=== PATIENT | female | born 1975 | race Caucasian/White ===

== ENCOUNTER → 2017-02-08 | Outpatient (CLI) | payer OTHER ==
--- NOTE | 2017-02-08 09:55 | CR ---
EXAMINATION: Two-view chest (PA and Lateral views). HISTORY: Cough. FINDINGS: The trachea is midline. The cardiomediastinal silhouette is within normal limits. No pulmonary infil trates, effusions or pneumothorax. Osseous structures appear unremarkable. IMPRESSION: No acute cardiopulmonary process.
== END ==
LOC: MW.CHFP 09:13
PROVIDERS: ATTEND Physician Assistant
DX: R05 Cough (principal); R50.9 Fever, unspecified
CPT/HCPCS: 36415; 71020; 71020-26; 85025

== ENCOUNTER 2017-07-31 04:10 | Emergency (ER) | payer OTHER ==
[2017-07-31] MEDS ORDERED: Ketorolac 30 MG/ML SDV IVPUSH ONE (04:19)
[2017-07-31] MEDS ORDERED: Ondansetron 4 MG/2 ML SDV IVPUSH ONE (04:19)
[2017-07-31] MEDS ORDERED: Sodium Chloride 0.9% 1,000 ML IV SCH (04:30)
--- NOTE | 2017-07-31 04:33 | EDM.PDOC ---
ED HPI GENERAL MEDICAL PROBLEM - General Chief Complaint: Abdominal Pain Stated Complaint: STOMACH PAIN Time Seen by Provider: 07/31/17 04:16 - History of Present Illness INITIAL COMMENTS - FREE TEXT/NARRATIVE: HISTORY AND PHYSICAL: History of present illness: Patient is a 42-year-old white female who presents with a concern of left lower quadrant abdominal pain that came on acutely approximately 3 hours prior to arrival patient has history of ovarian cyst this was right-sided she has had a partial hysterectomy she denies fever chills nausea vomiting patient denies trauma denies urinary symptoms vaginal discharge or irregular bleeding Review of systems: As per history of present illness and below otherwise all systems reviewed and negative. Past medical history: As per history of present illness and as reviewed below otherwise noncontributory. Surgical history: As per history of present illness and as reviewed below otherwise noncontributory. Social history: No reported history of drug or alcohol abuse. Family history: As per history of present illness and as reviewed below otherwise noncontributory. Physical exam: HEENT: Atraumatic, normocephalic, pupils reactive, negative for conjunctival pallor or scleral icterus, mucous membranes moist, throat clear, neck supple, nontender, trachea midline. Lungs: Clear to auscultation, breath sounds equal bilaterally, chest nontender. Heart: S1S2, regular, negative for clicks, rubs, or JVD. Abdomen: Soft, nondistended, patient's localized tenderness in the left lower quadrant no rebound equivocal guarding. Negative for masses or hepatosplenomegaly. Negative for costovertebral tenderness. Pelvis: Stable nontender. Genitourinary: Deferred. Rectal: Deferred. Extremities: Atraumatic, negative for cords or calf pain. Neurovascular unremarkable. Neuro: Awake, alert, oriented. Cranial nerves II through XII unremarkable. Cerebellum unremarkable. Motor and sensory unremarkable throughout. Exam nonfocal. Diagnostics: CBC CMP UA CT abdomen and pelvis Therapeutics: Normal saline 1 L bolus and Toradol 30 mg IV Zofran 4 mg IV Impression: #1 acute left lower quadrant abdominal pain Definitive disposition and diagnosis as appropriate pending reevaluation and review of above. Left Lower Abdomen Pain Score (Numeric/FACES): 5 - Related Data Allergies Allergy/AdvReac Type Severity Reaction Status Date / Time No Known Allergies Allergy Verified 07/31/17 04:13 Home Meds: Home Meds . [No Known Home Meds] 07/31/17 [History] Past Medical History HEENT History: Reports: None Cardiovascular History: Reports: None Respiratory History: Reports: None Gastrointestinal History: Reports: None Genitourinary History: Reports: None CUT OFF TENDER GLASS History: Reports: None Musculoskeletal History: Reports: None Neurological History: Reports: None Psychiatric History: Reports: None Endocrine/Metabolic History: Reports: None Hematologic History: Reports: None Immunologic History: Reports: None Oncologic (Cancer) History: Reports: None Dermatologic History: Reports: None - Infectious Disease History Infectious Disease History: Reports: Chicken Pox - Past Surgical History Head Surgeries/Procedures: Reports: None HEENT Surgical History: Reports: Adenoidectomy Cardiovascular Surgical History: Reports: None Respiratory Surgical History: Reports: None GI Surgical History: Reports: Appendectomy, Cholecystectomy Female Surgical History: Reports: Hysterectomy Endocrine Surgical History: Reports: None Neurological Surgical History: Reports: None Musculoskeletal Surgical History: Reports: None Oncologic Surgical History: Reports: None Dermatological Surgical History: Reports: None Social & Family History - Family History Family Medical History: Noncontributory - Tobacco Use Smoking Status *Q: Current Every Day Smoker Years of Tobacco use: 20 Packs/Tins Daily: 0.5 - Caffeine Use Caffeine Use: Reports: Coffee - Alcohol Use Days Per Week of Alcohol Use: 1 Number of Drinks Per Day: 2 Total Drinks Per Week: 2 - Recreational Drug Use Recreational Drug Use: No Drug Use in Last 12 Months: No ED ROS GENERAL - Review of Systems Review Of Systems: ROS reveals no pertinent complaints other than HPI. ED EXAM, GENERAL - Physical Exam Exam: See Below (See dictation) Course - Vital Signs Last Recorded V/S: Last Vital Signs Temp 36.6 C 07/31/17 04:14 Pulse 75 07/31/17 05:00 Resp 18 07/31/17 05:00 BP 123/58 L 07/31/17 05:00 Pulse Ox 95 07/31/17 05:00 - Orders/Labs/Meds Orders: Active Orders 24 hr Category Date Time Status Abdomen Pelvis wo Cont [CT] Stat Exams 07/31/17 04:19 Taken Sodium Chloride 0.9% [Normal Saline] 1,000 ml Med 07/31/17 04:30 Active IV ASDIRECTED Medication Orders Sodium Chloride (Normal Saline) 1,000 mls @ 999 mls/hr IV ASDIRECTED NIRMAL Last Admin: 07/31/17 04:30 Dose: 999 mls/hr Labs: Laboratory Tests 07/31/17 07/31/17 07/31/17 Range/Units 04:28 04:28 04:52 WBC 9.48 (4.0-11.0) K/uL RBC 4.94 (4.30-5.90) M/uL Hgb 13.6 (12.0-16.0) g/dL Hct 40.3 (36.0-46.0) % MCV 81.6 (80.0-98.0) fL MCH 27.5 (27.0-32.0) pg MCHC 33.7 (31.0-37.0) g/dL RDW Std Deviation 40.9 (28.0-62.0) fl RDW Coeff of Christine 14 (11.0-15.0) % Plt Count 181 (150-400) K/uL MPV 10.60 (7.40-12.00) fL Neut % (Auto) 71.5 (48.0-80.0) % Lymph % (Auto) 17.6 (16.0-40.0) % [place] % (Auto) 7.4 (0.0-15.0) % Eos % (Auto) 3.0 (0.0-7.0) % Baso % (Auto) 0.5 (0.0-1.5) % Neut # (Auto) 6.8 H (1.4-5.7) K/uL Lymph # (Auto) 1.7 (0.6-2.4) K/uL [place] # (Auto) 0.7 (0.0-0.8) K/uL Eos # (Auto) 0.3 (0.0-0.7) K/uL Baso # (Auto) 0.1 (0.0-0.1) K/uL Nucleated RBC % 0.0 /100WBC Nucleated RBCs # 0 K/uL Sodium 143 (136-146) mmol/L Potassium 3.7 (3.5-5.1) mmol/L Chloride 111 H (98-110) mmol/L Carbon Dioxide 23 (21-31) mmol/L BUN 11 (6.0-23.0) mg/dL Creatinine 0.8 (0.6-1.5) mg/dL Est Cr Clr Drug Dosing 93.72 mL/min Estimated GFR (MDRD) > 60.0 ml/min Glucose 102 (60-110) mg/dL Calcium 9.0 (8.8-10.8) mg/dL Total Bilirubin 0.7 (0.1-1.5) mg/dL AST 16 (5-40) IU/L ALT 15 (8-54) IU/L Alkaline Phosphatase 79 (40-150) Total Protein 6.9 (6.0-8.0) g/dL Albumin 4.0 (3.5-5.0) g/dL Globulin 2.9 (2.0-3.5) g/dL Albumin/Globulin Ratio 1.4 (1.3-2.8) Urine Color YELLOW Urine Appearance SLT CLOUDY Urine pH 5.5 (5.0-8.0) Ur Specific [place] >= 1.030 (1.001-1.035) Urine Protein TRACE (NEGATIVE) mg/dL Urine Glucose (UA) NEGATIVE (NEGATIVE) mg/dL Urine Ketones NEGATIVE (NEGATIVE) mg/dL Urine Occult Blood LARGE H (NEGATIVE) Urine Nitrite NEGATIVE (NEGATIVE) Urine Bilirubin SMALL H (NEGATIVE) Urine Ictotest NEGATIVE Urine Urobilinogen 0.2 (<2.0) EU/dL Ur Leukocyte Esterase NEGATIVE (NEGATIVE) Urine RBC 50-75 H (0-2/HPF) Urine WBC 1-2 (0-5/HPF) Ur Epithelial Cells FEW (NONE-FEW) Urine Bacteria FEW (NEGATIVE) Urine Mucus LIGHT (NONE-MOD) Meds: Medications Generic Name Dose Route Start Last Admin Trade Name Freamaris PRN Reason Stop Dose Admin Sodium Chloride 1,000 mls @ 999 mls/hr 07/31/17 04:30 07/31/17 04:30 Normal Saline IV 999 mls/hr ASDIRECTED NIRMAL Administration Discontinued Medications Generic Name Dose Route Start Last Admin Trade Name Barreraq PRN Reason Stop Dose Admin Ketorolac Tromethamine 30 mg 07/31/17 04:19 07/31/17 04:31 Toradol IVPUSH 07/31/17 04:20 30 mg ONETIME ONE Administration Ondansetron HCl 4 mg 07/31/17 04:19 07/31/17 04:31 Zofran IVPUSH 07/31/17 04:20 4 mg ONETIME ONE Administration Tamsulosin HCl 0.4 mg 07/31/17 05:29 07/31/17 05:33 Flomax PO 07/31/17 05:30 0.4 mg ONETIME ONE Administration Departure - Departure Time of Disposition: 05:39 Disposition: Home, Self-Care 01 Condition: Good Clinical Impression: Ureterolithiasis - Discharge Information Referrals: PCP,None [Primary Care Provider] - Forms: ED Department Discharge Additional Instructions: The following information is given to patients seen in the emergency department who are being discharged to home. This information is to outline your options for follow-up care. We provide all patients seen in our emergency department with a follow-up referral. The need for follow-up, as well as the timing and circumstances, are variable depending upon the specifics of your emergency department visit. If you don't have a primary care physician on staff, we will provide you with a referral. We always advise you to contact your personal physician following an emergency department visit to inform them of the circumstance of the visit and for follow-up with them and/or the need for any referrals to a consulting specialist. The emergency department will also refer you to a specialist when appropriate. This referral assures that you have the opportunity for followup care with a specialist. All of these measure are taken in an effort to provide you with optimal care, which includes your followup. Under all circumstances we always encourage you to contact your private physician who remains a resource for coordinating your care. When calling for followup care, please make the office aware that this follow-up is from your recent emergency room visit. If for any reason you are refused follow-up, please contact the [facility] emergency department at and asked to speak to the emergency department charge nurse. [facility] Specialty Care - Urology [address] [place] [id number] Hydrocodone Zofran and Flomax as prescribed push fluids follow-up urology as discussed return as needed as discussed - My Orders Last 24 Hours: My Active Orders 07/31/17 04:19 Abdomen Pelvis wo Cont [CT] Stat 07/31/17 04:30 Sodium Chloride 0.9% [Normal Saline] 1,000 ml IV ASDIRECTED - Assessment/Plan Last 24 Hours: My Active Orders 07/31/17 04:19 Abdomen Pelvis wo Cont [CT] Stat 07/31/17 04:30 Sodium Chloride 0.9% [Normal Saline] 1,000 ml IV ASDIRECTED
[2017-07-31 05:00] LABS: CHLORIDE,CL 111 mmol/L (98-110); SODIUM,NA 143 mmol/L (136-146)
[2017-07-31] MEDS ORDERED: Tamsulosin 0.4 MG Cap.ER PO ONE (05:29)
[2017-07-31 05:58] VITALS: BP 132/74
--- NOTE | 2017-07-31 10:29 | CT ---
EXAM DATE: 07/31/17 PATIENT'S AGE: 42 Patient: ROXANNA CHO Facility: [place], [place] Site . Site : [id number] Study: CT Abdomen/Pelvis [id number]/[id number] 4:57:58 AM Ordering Physician: Hiro Robbins Final Report: INDICATION: Left flank pain. TECHNIQUE: CT abdomen and pelvis without contrast. COMPARISON: None. FINDINGS: Lower chest: Unremarkable. Liver: Unremarkable. Spleen: Unremarkable. Pancreas: Unremarkable. Gallbladder and bile ducts: Cholecystectomy. Kidneys: 3 mm stone in the proximal left ureter causes mild hydroureteronephrosis. No additional evidence of urolithiasis. Adrenal glands: Unremarkable. GI tract: Unremarkable. Appendix is normal. No free air or free fluid. Vascular structures: Unremarkable. Lymph nodes: Unremarkable. Pelvic Organs: Lobular low-attenuation lesion in the right adnexal region is incompletely characterized. For example, this measures approximately 4.7 x 3.8 cm on axial image 131. Bones: No acute abnormality. IMPRESSION: 3 mm stone in the proximal left ureter causing mild hydroureteronephrosis. Low-attenuation lesion in the right adnexal region. Followup nonemergent pelvic ultrasound recommended for further evaluation. Dictated by Faustino Lewis MD @ 07/31/2017 5:07:22 AM Dictated by: Faustino Lewis MD @ 07/31/2017 05:07:49 (Electronic Signature) Report Signed by Proxy. MEDISYS HEALTH NETWORKRicardo
== END 2017-07-31 05:55 | disposition home or self-care (01) ==
LOC: MW.ED 04:10
DX: N13.2 Hydronephrosis with renal and ureteral calculous obstruction (principal); F17.210 Nicotine dependence, cigarettes, uncomplicated; Z90.49 Acquired absence of other specified parts of digestive tract; Z90.710 Acquired absence of both cervix and uterus
CPT/HCPCS: 74176; 80053; 81001; 85025; 96361; 96374; 96375; 99284; A9270; J1885; J2405; J7040; 99283

== ENCOUNTER 2017-10-31 16:46 | Emergency (ER) | payer OTHER ==
[2017-10-31 17:28] VITALS: BP 138/91
[2017-10-31] MEDS ORDERED: Morphine 4 MG/ML Syringe IVPUSH ONE (17:56)
[2017-10-31] MEDS ORDERED: Ondansetron 4 MG/2 ML SDV IVPUSH ONE (17:56)
[2017-10-31] MEDS ORDERED: Sodium Chloride 0.9% 1,000 ML IV ONE (17:57)
[2017-10-31] MEDS ORDERED: Ketorolac 30 MG/ML SDV IVPUSH ONE (18:01)
--- NOTE | 2017-10-31 18:09 | EDM.PDOC ---
ED HPI GENERAL MEDICAL PROBLEM - General Chief Complaint: Abdominal Pain Stated Complaint: abdominal pain Time Seen by Provider: 10/31/17 17:50 Source of Information: Reports: Patient History Limitations: Reports: No Limitations - History of Present Illness INITIAL COMMENTS - FREE TEXT/NARRATIVE: HISTORY AND PHYSICAL: History of present illness: Patient is a 42-year-old female who presents to the emergency room with complaints of left flank pain that radiates into her left groin. Last week she was seen at [facility] for a UTI and was placed on Macrobid. Since that time has progressively worse pain to her left flank and today it now radiates into her groin. She does have a history of a kidney stone which she saw Dr. Way for in the past. This is fairly recent, within the last few months, and believes that this "is still there". She states that this pain is identical to previous kidney stones. Patient is up pacing in the room, she is unable to get comfortable. Denies any chance of , has had a hysterectomy. Review of systems: As per history of present illness and below otherwise all systems reviewed and negative. Past medical history: As per history of present illness and as reviewed below otherwise noncontributory. Surgical history: As per history of present illness and as reviewed below otherwise noncontributory. Social history: No reported history of drug or alcohol abuse. Family history: As per history of present illness and as reviewed below otherwise noncontributory. Physical exam: Gen.: Well-developed and well-nourished 42-year-old female. Appears nontoxic and in no acute distress. Alert and oriented. HEENT: Atraumatic, normocephalic, pupils reactive, negative for conjunctival pallor or scleral icterus, mucous membranes moist, throat clear, neck supple, nontender, trachea midline. Lungs: Clear to auscultation, breath sounds equal bilaterally, chest nontender. Heart: S1S2, regular, negative for clicks, rubs, or JVD. Abdomen: Soft, nondistended, nontender. Negative for masses or hepatosplenomegaly. Left costovertebral tenderness. Pelvis: Stable nontender. Genitourinary: Deferred. Rectal: Deferred. Extremities: Atraumatic, negative for cords or calf pain. Neurovascular unremarkable. Neuro: Awake, alert, oriented. Cranial nerves II through XII unremarkable. Cerebellum unremarkable. Motor and sensory unremarkable throughout. Exam nonfocal. CT scan shows a partially obstructing distal left ureteral colliculus at the UVJ , 2.2 mm in greatest width and roughly 4.4 mm in length. I did contact Dr. Way, he states that this should pass on its own. Instructed me to give her Flomax, pain medication and a strainer. He states that if she has continued problems he will see her in about 3 weeks. I did relay this information to the patient and she voices understanding and is agreeable to plan of care. Diagnostics: CBC, CMP, amylase, lipase, UA, CT abdomen and pelvis IV fluid, Zofran, morphine Impression: Renal calculus, left Plan: 1. Please take your pain medication as prescribed. This is a narcotics so do not take while driving or needing to be functioning at work. An antinausea medication, Zofran, has been prescribed as well. 2. Please increase your fluid intake and strain your urine. 3. Dr. Joshi is aware of her case and states he'll be happy to see you if needed. Follow-up with your primary care provider in the next 1-2 days. Return to the ED as needed and as discussed. Definitive disposition and diagnosis as appropriate pending reevaluation and review of above. Duration: Day(s): Location: Reports: Abdomen Left Flank Pain Score (Numeric/FACES): 8 - Related Data Allergies Allergy/AdvReac Type Severity Reaction Status Date / Time No Known Allergies Allergy Verified 10/31/17 17:28 Home Meds: Home Meds Nitrofurantoin [place]/Macrocryst [Macrobid] 100 mg PO BID 10/31/17 [History] Past Medical History HEENT History: Reports: None Cardiovascular History: Reports: None Respiratory History: Reports: None Gastrointestinal History: Reports: None Genitourinary History: Reports: None [employer] History: Reports: None Musculoskeletal History: Reports: None Neurological History: Reports: None Psychiatric History: Reports: None Endocrine/Metabolic History: Reports: None Hematologic History: Reports: None Immunologic History: Reports: None Oncologic (Cancer) History: Reports: None Dermatologic History: Reports: None - Infectious Disease History Infectious Disease History: Reports: Chicken Pox - Past Surgical History Head Surgeries/Procedures: Reports: None HEENT Surgical History: Reports: Adenoidectomy Cardiovascular Surgical History: Reports: None Respiratory Surgical History: Reports: None GI Surgical History: Reports: Appendectomy, Cholecystectomy Female Surgical History: Reports: Hysterectomy Endocrine Surgical History: Reports: None Neurological Surgical History: Reports: None Musculoskeletal Surgical History: Reports: None Oncologic Surgical History: Reports: None Dermatological Surgical History: Reports: None Social & Family History - Family History Family Medical History: Noncontributory - Tobacco Use Smoking Status *Q: Current Every Day Smoker Years of Tobacco use: 20 Packs/Tins Daily: 0.5 - Caffeine Use Caffeine Use: Reports: Coffee - Alcohol Use Days Per Week of Alcohol Use: 2 Number of Drinks Per Day: 6 Total Drinks Per Week: 12 - Recreational Drug Use Recreational Drug Use: No Drug Use in Last 12 Months: No ED ROS GENERAL - Review of Systems Review Of Systems: ROS reveals no pertinent complaints other than HPI. ED EXAM, RENAL/ - Physical Exam Exam: See Below (See dictation) Course - Vital Signs Last Recorded V/S: Last Vital Signs Temp 98 F 10/31/17 17:25 Pulse 86 10/31/17 17:25 Resp 22 H 10/31/17 17:25 BP 138/91 H 10/31/17 17:25 Pulse Ox 98 10/31/17 17:25 - Orders/Labs/Meds Orders: Active Orders 24 hr Category Date Time Status Abdomen Pelvis wo Cont [CT] Stat Exams 10/31/17 17:56 Taken HYDROmorphone [Dilaudid] Med 10/31/17 19:27 Once 1 mg IVPUSH ONETIME ONE Labs: Laboratory Tests 10/31/17 10/31/17 10/31/17 Range/Units 17:30 17:30 18:50 WBC 13.97 H (4.0-11.0) K/uL RBC 4.86 (4.30-5.90) M/uL Hgb 13.3 (12.0-16.0) g/dL Hct 40.2 (36.0-46.0) % MCV 82.7 (80.0-98.0) fL MCH 27.4 (27.0-32.0) pg MCHC 33.1 (31.0-37.0) g/dL RDW Std Deviation 42.1 (28.0-62.0) fl RDW Coeff of Christine 14 (11.0-15.0) % Plt Count 164 (150-400) K/uL MPV 11.20 (7.40-12.00) fL Neut % (Auto) 88.1 H (48.0-80.0) % Lymph % (Auto) 7.5 L (16.0-40.0) % [place] % (Auto) 3.2 (0.0-15.0) % Eos % (Auto) 0.9 (0.0-7.0) % Baso % (Auto) 0.3 (0.0-1.5) % Neut # (Auto) 12.3 H (1.4-5.7) K/uL Lymph # (Auto) 1.1 (0.6-2.4) K/uL [place] # (Auto) 0.5 (0.0-0.8) K/uL Eos # (Auto) 0.1 (0.0-0.7) K/uL Baso # (Auto) 0.0 (0.0-0.1) K/uL Nucleated RBC % 0.0 /100WBC Nucleated RBCs # 0 K/uL Sodium 144 (136-146) mmol/L Potassium 3.8 (3.5-5.1) mmol/L Chloride 109 (98-110) mmol/L Carbon Dioxide 23 (21-31) mmol/L BUN 11 (6.0-23.0) mg/dL Creatinine 0.9 (0.6-1.5) mg/dL Est Cr Clr Drug Dosing 82.98 mL/min Estimated GFR (MDRD) > 60.0 ml/min Glucose 100 (60-110) mg/dL Calcium 9.9 (8.8-10.8) mg/dL Total Bilirubin 0.4 (0.1-1.5) mg/dL AST 15 (5-40) IU/L ALT 14 (8-54) IU/L Alkaline Phosphatase 82 (40-150) Total Protein 7.7 (6.0-8.0) g/dL Albumin 4.3 (3.5-5.0) g/dL Globulin 3.4 (2.0-3.5) g/dL Albumin/Globulin Ratio 1.3 (1.3-2.8) Amylase 45 (10-90) U/L Lipase 21 (7-80) U/L Urine Color YELLOW Urine Appearance CLEAR Urine pH 5.5 (5.0-8.0) Ur Specific [place] >= 1.030 (1.001-1.035) Urine Protein NEGATIVE (NEGATIVE) mg/dL Urine Glucose (UA) NEGATIVE (NEGATIVE) mg/dL Urine Ketones TRACE H (NEGATIVE) mg/dL Urine Occult Blood TRACE-INTACT (NEGATIVE) Urine Nitrite NEGATIVE (NEGATIVE) Urine Bilirubin NEGATIVE (NEGATIVE) Urine Urobilinogen 0.2 (<2.0) EU/dL Ur Leukocyte Esterase NEGATIVE (NEGATIVE) Urine RBC 1-2 (0-2/HPF) Urine WBC 1-3 (0-5/HPF) Ur Epithelial Cells MODERATE (NONE-FEW) Amorphous Sediment FEW (NEGATIVE) Urine Bacteria FEW (NEGATIVE) Meds: Medications Discontinued Medications Generic Name Dose Route Start Last Admin Trade Name Barreraq PRN Reason Stop Dose Admin Sodium Chloride 1,000 mls @ 999 mls/hr 10/31/17 17:57 10/31/17 18:32 Normal Saline IV 10/31/17 18:57 999 mls/hr STAT ONE Administration Ketorolac Tromethamine 30 mg 10/31/17 18:01 10/31/17 18:32 Toradol IVPUSH 10/31/17 18:02 30 mg ONETIME ONE Administration Morphine Sulfate 4 mg 10/31/17 17:56 10/31/17 19:01 Morphine IVPUSH 10/31/17 17:57 4 mg ONETIME ONE Administration Ondansetron HCl 4 mg 10/31/17 17:56 10/31/17 18:32 Zofran IVPUSH 10/31/17 17:57 4 mg ONETIME ONE Administration Departure - Departure Time of Disposition: 19:30 Disposition: Home, Self-Care 01 Clinical Impression: Renal calculus - Discharge Information Referrals: PCP,None [Primary Care Provider] - Forms: ED Department Discharge Additional Instructions: My general discharge The following information is given to patients seen in the emergency department who are being discharged to home. This information is to outline your options for follow-up care. We provide all patients seen in our emergency department with a follow-up referral. The need for follow-up, as well as the timing and circumstances, are variable depending upon the specifics of your emergency department visit. If you don't have a primary care physician on staff, we will provide you with a referral. We always advise you to contact your personal physician following an emergency department visit to inform them of the circumstance of the visit and for follow-up with them and/or the need for any referrals to a consulting specialist. The emergency department will also refer you to a specialist when appropriate. This referral assures that you have the opportunity for follow-up care with a specialist. All of these measure are taken in an effort to provide you with optimal care, which includes your follow-up. Under all circumstances we always encourage you to contact your private physician who remains a resource for coordinating your care. When calling for follow-up care, please make the office aware that this follow-up is from your recent emergency room visit. If for any reason you are refused follow-up, please contact the [facility] Emergency Department at and asked to speak to the emergency department charge nurse. [facility] Primary Care [address] [place] [id number] 1. Please take your pain medication as prescribed. This is a narcotics so do not take while driving or needing to be functioning at work. An antinausea medication, Zofran, has been prescribed as well. 2. Please increase your fluid intake and strain your urine. 3. Dr. Joshi is aware of her case and states he'll be happy to see you if needed. Follow-up with your primary care provider in the next 1-2 days. Return to the ED as needed and as discussed. - My Orders Last 24 Hours: My Active Orders 10/31/17 17:56 Abdomen Pelvis wo Cont [CT] Stat 10/31/17 19:27 HYDROmorphone [Dilaudid] 1 mg IVPUSH ONETIME ONE - Assessment/Plan Last 24 Hours: My Active Orders 10/31/17 17:56 Abdomen Pelvis wo Cont [CT] Stat 10/31/17 19:27 HYDROmorphone [Dilaudid] 1 mg IVPUSH ONETIME ONE
[2017-10-31 18:18] LABS: CHLORIDE,CL 109 mmol/L (98-110); SODIUM,NA 144 mmol/L (136-146)
[2017-10-31] MEDS ORDERED: HYDROmorphone 1 MG/ML Syringe IVPUSH ONE (19:27)
--- NOTE | 2017-11-01 08:49 | CT ---
EXAM DATE: 10/31/17 PATIENT'S AGE: 42 Patient: ROXANNA CHO Facility: [place], [place] Site . Site : 1975 Study: CT Abdomen/Pelvis WO CONT [id number] 6:25:27 PM Ordering Physician: Doctor Herrera Final Report: INDICATION: Left flank pain. History nephrolithiasis. TECHNIQUE: CT abdomen and pelvis without contrast. COMPARISON: CT 31 July 2017. FINDINGS: Lower chest: Unremarkable. Liver: Unremarkable. Spleen: Unremarkable. Pancreas: Unremarkable. Gallbladder and bile ducts: Cholelithiasis. No ductal dilatation. Kidneys: Mild left hydronephrosis and hydroureter extending to ureterovesicular junction calculus which is 2.2 mm in greatest width and roughly 4.4 mm in length (image 138 series). Urinary bladder is decompressed. No other nephrolithiasis on the left. Normal appearance on the right. Adrenal glands: Unremarkable. GI tract: Unremarkable. Appendix is not identified. Vascular structures: Unremarkable. Lymph nodes: Unremarkable. Miscellaneous: Unremarkable. No free air or significant free fluid. Pelvic Organs: Apparent hysterectomy. Lobular soft tissue foci of mid and right pelvis presumably ovaries. Midline structures is solid-appearing and 5 x 4 cm. This is similar to before. Bones: Unremarkable for age. IMPRESSION: Partially obstructing distal left ureteral calculus at the UVJ. Lobular stable soft tissue pelvic densities presumably ovarian. Ultrasound would better characterize. Apparent hysterectomy. Cholecystectomy. Please note that all CT scans at this facility use dose modulation, iterative reconstruction, and/or weight-based dosing when appropriate to reduce radiation dose to as low as reasonably achievable. Dictated by Case Chisholm MD @ Oct 31 2017 6:31PM (Electronic Signature) Report Signed by Proxy. [facility]
== END 2017-10-31 20:00 | disposition home or self-care (01) ==
LOC: MW.ED 16:46
DX: N13.2 Hydronephrosis with renal and ureteral calculous obstruction (principal); F17.210 Nicotine dependence, cigarettes, uncomplicated
CPT/HCPCS: 36415; 74176; 80053; 81001; 82150; 83690; 85025; 96361; 96374; 96375; 99284; J1170; J1885; J2270; J2405; J7040; 99283

== ENCOUNTER 2018-01-07 10:56 | Day surgery (SDC) | payer OTHER ==
[~2018-01-07 10:56] MED LIST: Bupivacaine 0.25% 10 ML SDV ONE; Dexamethasone 4 MG/ML 5 ML MDV ONE; Midazolam 1 MG/ML 2 ML SDV ONE; Ondansetron 4 MG/2 ML SDV ONE; Propofol 200 MG/20 ML SDV ONE; Rocuronium 10 MG/ML 10 ML Syringe ONE; Sodium Chloride 0.9% 10 ML Syringe FLUSH PRN; Sodium Chloride 0.9% 2.5 ML Syringe FLUSH PRN; Sodium Chloride 0.9% 20 ML ONE; Succinylcholine/Normal Saline 200 MG/10 ML Syringe ONE; ceFAZolin 1 GM Vial ONE; ceFAZolin/Dextrose,Iso-Osmotic 2 GM/50 ML Duplex Bag IV ONE; fentaNYL 100 MCG/2 ML SDV ONE
[2018-01-07] MEDS ORDERED: Lactated Ringers 1,000 ML IV SCH (11:30)
--- NOTE | 2018-01-07 11:34 | PCM.PREANE ---
Preanesthetic Assessment - Anesthesia/Transfusion/Family Hx Anesthesia History: Prior Anesthesia Without Reaction Other Type of Anesthesia Reaction Comment: Denies any known problem in past, Father, BP drops and they watch him Family History of Anesthesia Reaction: No Transfusion History: No Prior Transfusion(s) Intubation History: Unknown - Review of Systems General: No Symptoms Pulmonary: No Symptoms Cardiovascular: No Symptoms Gastrointestinal: No Symptoms Neurological: No Symptoms Other: Reports: None - Physical Assessment Height: 1.74 m Weight: 124.284 kg ASA Class: 2 Mental Status: Alert & Oriented x3 Airway Class: Mallampati = 2 Dentition: Reports: Normal Dentition Thyro-Mental Finger Breadths: 3 Mouth Opening Finger Breadths: 2 ROM/Head Extension: Full Lungs: Clear to Auscultation, Normal Respiratory Effort Cardiovascular: Regular Rate, Regular Rhythm - Allergies Allergies/Adverse Reactions: Allergies Allergy/AdvReac Type Severity Reaction Status Date / Time No Known Allergies Allergy Verified 01/04/18 08:12 - Blood Blood Available: No - Anesthesia Plan Pre-Op Medication Ordered: None - Acknowledgements Anesthesia Type Planned: General Anesthesia Pt an Appropriate Candidate for the Planned Anesthesia: Yes Alternatives and Risks of Anesthesia Discussed w Pt/Guardian: Yes Pt/Guardian Understands and Agrees with Anesthesia Plan: Yes PreAnesthesia Questionnaire HEENT History: Reports: None Other HEENT History: wears glasses/contacts Cardiovascular History: Reports: None Respiratory History: Reports: None, Other (See Below) (h/o asthma, no attacks for a long time) Gastrointestinal History: Reports: None, Other (See Below) Other Gastrointestinal History: occasional heartburn- takes OTC meds Genitourinary History: Reports: Renal Calculus 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: Reports: , Other (See Below) (ovarian cyst) Musculoskeletal History: Reports: None Neurological History: Reports: None Psychiatric History: Reports: None Endocrine/Metabolic History: Reports: Obesity/BMI 30+ (BMI 41.1 - morbid obesity ) Hematologic History: Reports: None Immunologic History: Reports: None Oncologic (Cancer) History: Reports: None Dermatologic History: Reports: None - Infectious Disease History Infectious Disease History: Reports: Chicken Pox - Past Surgical History Head Surgeries/Procedures: Reports: None HEENT Surgical History: Reports: Adenoidectomy, Naso-Sinus Surgery, Tonsillectomy Cardiovascular Surgical History: Reports: None Respiratory Surgical History: Reports: None GI Surgical History: Reports: Appendectomy, Cholecystectomy, Colonoscopy Female Surgical History: Reports: Breast Reduction, D&C, Endometrial Ablation , Hysterectomy (TVH), Other (See Below) (hysteroscopy) Endocrine Surgical History: Reports: None Neurological Surgical History: Reports: None Musculoskeletal Surgical History: Reports: None Oncologic Surgical History: Reports: None Dermatological Surgical History: Reports: None - SUBSTANCE USE Smoking Status *Q: Current Every Day Smoker (<1/2 ppd) Tobacco Use Within Last Twelve Months: Cigarettes Days Per Week of Alcohol Use: 2 Number of Drinks Per Day: 6 Total Drinks Per Week: 12 Recreational Drug Use History: No - HOME MEDS Home Medications: Home Meds L Acidophil/B Lactis/B Longum [Florajen3] 1 tab PO DAILY 01/04/18 [History] - CURRENT (IN HOUSE) MEDS Current Meds: Current Medications Cefazolin Sodium 3 gm/ (Dextrose/Water) 50 mls @ 100 mls/hr IV ONETIME NIRMAL Stop: 01/08/18 05:29 Lactated Ringer's (Ringers, Lactated) 1,000 mls @ 125 mls/hr IV ASDIRECTED NIRMAL Sodium Chloride (Saline Flush) 10 ml FLUSH ASDIRECTED PRN PRN Reason: Keep Vein Open Sodium Chloride (Saline Flush) 2.5 ml FLUSH ASDIRECTED PRN PRN Reason: Keep Vein Open Discontinued Medications Bupivacaine HCl (Sensorcaine-Mpf 0.25%) Confirm Administered Dose 20 ml .ROUTE .STK-MED ONE Stop: 01/07/18 07:47 Cefazolin Sodium (Ancef) Confirm Administered Dose 1 gm .ROUTE .STK-MED ONE Stop: 01/07/18 10:24 Cefazolin Sodium/Dextrose (Ancef) Confirm Administered Dose 2 gm IV .STK-MED ONE Stop: 01/07/18 10:23 Dexamethasone (Dexamethasone) Confirm Administered Dose 20 mg .ROUTE .STK-MED ONE Stop: 01/07/18 10:22 Fentanyl (Sublimaze) Confirm Administered Dose 100 mcg .ROUTE .STK-MED ONE Stop: 01/07/18 10:21 Sodium Chloride (Normal Saline) Confirm Administered Dose 20 mls @ as directed .ROUTE .STK-MED ONE Stop: 01/07/18 10:24 Lidocaine HCl (Xylocaine-Mpf 1%) Confirm Administered Dose 5 ml .ROUTE .STK-MED ONE Stop: 01/07/18 10:22 Midazolam HCl (Versed 1 Mg/Ml) Confirm Administered Dose 2 mg .ROUTE .STK-MED ONE Stop: 01/07/18 10:21 Ondansetron HCl (Zofran) Confirm Administered Dose 4 mg .ROUTE .STK-MED ONE Stop: 01/07/18 10:22 Propofol (Diprivan 20 Ml) Confirm Administered Dose 200 mg .ROUTE .STAudiotoniq-MED ONE Stop: 01/07/18 10:21 Rocuronium [place] (Zemuron) Confirm Administered Dose 100 mg .ROUTE .STAudiotoniq-MED ONE Stop: 01/07/18 10:23 Succinylcholine Chloride (Succinylcholine In Ns Pf) Confirm Administered Dose 200 mg .ROUTE .STAudiotoniq-MED ONE Stop: 01/07/18 10:23
[2018-01-07] MEDS ORDERED: ePHEDrine 50 MG/ML SDV ONE (13:29)
[2018-01-07] MEDS ORDERED: fentaNYL 100 MCG/2 ML SDV IVPUSH PRN (13:35)
[2018-01-07] MEDS ORDERED: Neostigmine Methylsulfate 1 MG/ML 5 ML Syringe ONE (13:39)
[2018-01-07] MEDS ORDERED: Glycopyrrolate 0.2 MG/ML SDV ONE (13:39)
[2018-01-07] MEDS ORDERED: HYDROmorphone 2 MG/ML SDV ONE (13:57)
[2018-01-07] MEDS ORDERED: Furosemide 40 MG/4 ML VIAL ONE (14:08)
[2018-01-07] MEDS ORDERED: Fluorescein 5 ML Vial ONE (14:10)
[2018-01-07] MEDS ORDERED: fentaNYL 100 MCG/2 ML SDV ONE (15:05)
--- NOTE | 2018-01-07 15:39 | PCM.OPNOTE ---
- General Post-Op/Procedure Note Date of Surgery/Procedure: 01/07/18 Operative Procedure(s): Operative laparoscopy with right salpingoophorectomy, pelvic washings, lysis of adhesions, and cystoscopy Findings: Right probable endometrioma with omental/ovarian adhesions. bilateral patent ureters Pre Op Diagnosis: Right complex ovarian cyst Post-Op Diagnosis: same Anesthesia Technique: General ET Tube Primary Surgeon: Stephania Hicks Secondary Surgeon: Tamar Valentin (consulted for bowel-ovarian adhesions) Pathology: right tube/ovary/cyst, pelvic washings EBL in mLs: 25 Complications: none known Condition: Good Free Text/Narrative:: Intake & Output 01/07/18 01/07/18 01/07/18 06:59 14:59 22:59 Output Total 30 Balance -30 Dictation [id number]
--- NOTE | 2018-01-07 16:15 | PCM.POSTAN ---
POST ANESTHESIA ASSESSMENT - MENTAL STATUS Mental Status: Alert, Oriented - RESPIRATORY Respiratory Status: Respiratory Rate WNL, Airway Patent, O2 Saturation Stable - CARDIOVASCULAR CV Status: Pulse Rate WNL, Blood Pressure Stable - GASTROINTESTINAL GI Status: No Symptoms - PAIN Pain Score: 0 - POST OP HYDRATION Hydration Status: Adequate & Stable
--- NOTE | 2018-01-07 16:52 | PCM48HPAN ---
Post Anesthesia Note - EVALUATION WITHIN 48HRS OF ANESTHETIC Vital Signs in Normal Range: Yes Patient Participated in Evaluation: Yes Respiratory Function Stable: Yes Airway Patent: Yes Cardiovascular Function Stable: Yes Hydration Status Stable: Yes Pain Control Satisfactory: Yes Nausea and Vomiting Control Satisfactory: Yes Mental Status Recovered: Yes Resp Rate: 9
[2018-01-07 17:28] VITALS: BP 100/63
--- NOTE | 2018-01-07 22:23 | OR ---
SURGEON: Stephania Hicks M.D. DATE OF PROCEDURE: 01/07/2018 PREOPERATIVE DIAGNOSIS: Complex right ovarian cyst. POSTOPERATIVE DIAGNOSIS: Suspected right endometrioma. PROCEDURE: Operative laparoscopy with right salpingo-oophorectomy, pelvic washings, lysis of adhesions. CONSULT: Tamar Vaelntin MD ANESTHESIA: General endotracheal anesthesia. ESTIMATED BLOOD LOSS: 25 mL. FLUIDS: 2300 mL crystalloid. COMPLICATIONS: None. FINDINGS: Probable right endometrioma with omental bowel adhesions to the right ovary. Left tube and ovary appeared normal. Bilateral patent ureters with cystoscopy after salpingo-oophorectomy performed. DISPOSITION: The patient to PACU, stable. SPECIMEN: Pathology. PROCEDURE IN DETAIL: Kari is a 42-year-old female, who has an ongoing finding of a complex right ovarian cyst since March of 2018. She is not having acute discomfort, but the findings revealed a complex ovarian cyst that is concerning given its complexity. Therefore, after our discussion, she is going to proceed with surgical evaluation. Risks of procedures have been discussed. She would like to have the tube and ovary removed completely as this side has given her problems in the past. After proper consent was obtained, the patient was taken to the operating room, where she underwent general endotracheal anesthesia, was placed in modified dorsal lithotomy position, prepped and draped in the usual sterile fashion. SCDs to lower extremities. Bladder was drained. She did receive 3 g of Ancef prophylactically. Time-out was performed. Infraumbilically, 0.25% Marcaine was introduced. Please see nurse's notes for total amount of local dispensed during the procedure. A 5 mm sagittal midline infraumbilical incision was created, anterior abdominal wall tented upward. Subcutaneous tissues dissected to the level of the rectus fascia with hemostats and Veress needle was now gently introduced. Saline hanging drop test was performed. Pneumoperitoneum was achieved. Veress needle was removed. A 5 mm trocar was introduced. Laparoscope was introduced. Peritoneal contents were identified. Immediately, with Trendelenburg positioning, the right ovarian cyst was able to be visualized. This appeared to be more midline and adhesed to omentum along the midline pelvis. Care was now taken to placing left lower quadrant and right lower quadrant trocar. The left lower quadrant trocar was placed under direct visualization after prepping the regions with 0.25% Marcaine, creating a 12 mm skin incision and introducing a 12 mm port. In a similar fashion, this was performed on the patient's right side, although I introduced a 5 mm trocar. The right fallopian tube and ovary were able to be isolated, tented upward. The cyst was adherent with some adhesions that were gently lysed. However, there was a thicker adhesion along the base of the cyst. At this point, I was able to see the ureter peristalsing below the level of the operative field. Therefore, using LigaSure, after performing pelvic washings with normal saline, the right infundibulopelvic ligament was able to be secured, cauterized, and transected. The remainder of the broad ligament was able to be isolated with the round ligament transected after cauterizing with LigaSure. The right tube and ovary were now completely free from the pelvic sidewall, and the cyst was somewhat adherent to a fairly dense bowel, omental adhesion. Given the proximity of the visible bowel, I asked general surgeon, Dr. Valentin to consult in order to ensure it was appropriate to perform a lysis of adhesion along this region. In the interval while awaiting for Dr. Valentin to present, did perform a cystoscopy. The cystoscope was introduced into the bladder using normal saline as distention media. The dome of the bladder was able to be visualized followed by the trigone. Sodium fluorescein had been introduced b.i.d. with IV Lasix. The left ureteral orifice followed by the right ureteral orifice were able to be visualized. Fluorescein dyed urine was seen streaming from them, helping to ensure ureteral patency. Therefore, the bladder was drained. The cystoscope was completed and attention was returned abdominally after changing gloves. Dr. Valentin now presented and was able to evaluate the region of concern. With careful dissection, she was able to dissect through the adhesion to the point we could see that was mesentery/omentum and therefore was able to lyse with LigaSure. Please see consult note. At this point, the Endobag was able to be introduced. The right ovarian cyst, tube, and ovary were introduced in Endobag. Endobag was brought up through the left lower quadrant port, and the cyst was able to be incised and drained with suction. The fascia had to be extended slightly in order to accommodate the removal of the right ovarian tube ovary complex. This will be sent to Pathology for further analysis. Initial attempts to repair the fascia along this side did not completely close the fascial defect due to the patient's depth of subcutaneous tissue. Therefore, Cade-Cameron trocar was introduced using 0 Vicryl, suture was placed along the fascial elements on either side and tied down. The fascia was reapproximated at this juncture. Attention was returned to inspecting the pelvis. The right-sided pedicles were found to be hemostatic. Region was well irrigated, suction dried. Dr. Valentin once again inspected the stalks of the omental region of adhesiolysis. She was satisfied with this inspection. Hemostasis once again appear evident. Pelvis was once again well irrigated, suction dried. The pneumoperitoneum was released. The right lower quadrant trocar was removed under direct visualization. Laparoscope was removed as well as infraumbilical trocar. The skin edges were reapproximated using 3-0 Monocryl in subcuticular fashion. Sponge, instrument, needle count was correct x2. The patient has tolerated the procedure well overall. She will go to PACU in stable condition. Specimens to pathology. RAKESH / BRENDEN /[id number] FATEMEH
--- NOTE | 2018-01-08 11:06 | OR ---
SURGEON: ZA BRASWELL MD DATE OF PROCEDURE: 01/07/2018 Intraoperative consult note/operative report I was intraoperatively consulted by Dr. Stephania Hicks regarding intraabdominal adhesions. The patient was undergoing an operative laparoscopy with right salpingo-oophorectomy for a right probable endometrioma. The patient was found to have omental and ovarian adhesions. Most of these were taken down by Dr. Hicks; however, there was one section of adhesions that was particularly thick and appeared to be adhered to the bowel. I scrubbed in the case and inspected the operative field. There was an area of adhesions deep in the pelvis that appeared to be tenting part of the bowel. Using suction dissection and a right angle, I dissected through this tissue. I was able to take down some of the adhesions well enough to determine that there was no small bowel within the adhesion or other structures. Dr. Hicks herself had identified the right ureter, and it did not appear to be involved in the adhesion. Once I was confident that the tissue contains fat alone, a LigaSure device was used to take down the adhesion as close to the cyst as possible. Dr. Hicks then removed the cyst and associated structures via an EndoCatch bag through a left lateral port site. We then reinspected the area of dissection, there was no evidence of fecal material within the pelvis, and the area appeared hemostatic. I identified the ureter as well, and it appeared intact with no evidence of involvement. Please see Dr. Hicks's operative report for further details. BRENDAN / BRENDEN /[id number]
== END 2018-01-07 17:10 | disposition home or self-care (01) ==
LOC: MW.SDS 10:56
PROVIDERS: ATTEND Obstetrics & Gynecology
DX: N80.1 Endometriosis of ovary (principal); N83.11 Corpus luteum cyst of right ovary; N73.6 Female pelvic peritoneal adhesions (postinfective); J45.909 Unspecified asthma, uncomplicated; Z90.49 Acquired absence of other specified parts of digestive tract; Z90.710 Acquired absence of both cervix and uterus; Z79.899 Other long term (current) drug therapy; F17.210 Nicotine dependence, cigarettes, uncomplicated
CPT/HCPCS: 36415; 58661; 84703; 85027; J0690; J1100; J1170; J1940; J2250; J2405; J3010; J7120; 00840; 88104; 88307; J2704

== ENCOUNTER 2023-07-01 11:31 | Emergency (ER) | payer OTHER ==
[2023-07-01] MEDS ORDERED: Acetaminophen 325 MG Tab PO ONE (13:16)
[2023-07-01] MEDS ORDERED: Prochlorperazine 10 MG in Sodium Chloride 0.9% 50 ML IV ONE (13:16)
[2023-07-01] MEDS ORDERED: diphenhydrAMINE 50 MG/ML SDV IVPUSH ONE (13:16)
[2023-07-01] MEDS ORDERED: Dexamethasone 10 MG/ML SDV IVPUSH ONE (13:20)
[2023-07-01] MEDS ORDERED: Lactated Ringers 1,000 ML IV SCH (13:30)
[2023-07-01] MEDS ORDERED: Prochlorperazine 10 MG/2 ML SDV IVPUSH ONE (13:30)
[2023-07-01] MEDS ORDERED: Ketorolac 30 MG/ML SDV IVPUSH ONE (14:53)
[2023-07-01 15:19] VITALS: BP 132/87; PULSE 92
== END 2023-07-01 15:18 | disposition home or self-care (01) ==
LOC: MW.ED 11:31
DX: U07.1 COVID-19 (principal); E66.9 Obesity, unspecified; Z68.41 Body mass index [BMI] 40.0-44.9, adult; Z79.899 Other long term (current) drug therapy; Z90.49 Acquired absence of other specified parts of digestive tract; Z90.710 Acquired absence of both cervix and uterus
CPT/HCPCS: 87635; 96361; 96374; 96375; 99284; A9270; J0780; J1100; J1200; J1885; J7120; U0002